=== PATIENT | female | born 1940 | race Caucasian/White ===

== ENCOUNTER 2019-02-08 22:49 | Inpatient (IN) | payer OTHER ==
[2019-02-09] MEDS ORDERED: ACETAMINOPHEN 325 MG TAB PO
[2019-02-09] MEDS ORDERED: hydrALAzine 20 MG INJ IV
[2019-02-09] MEDS: SOD CHLORIDE 0.9% 1,000 ML IV ×3 (00:48→16:03)
[2019-02-09] MEDS: ONDANSETRON 4 MG INJ IV (00:48)
[2019-02-09] MEDS: CEFTRIAXONE 1 GM/50 ML (PMX) 50 ML IVPB ×2 (00:48→23:07)
[2019-02-09] MEDS: morphine 2 MG INJ IV (00:49)
[2019-02-09] MEDS: KETOROLAC 15 MG INJ IV (00:50)
[2019-02-09] MEDS ORDERED: GLUCOSE GEL 15 GRAM TUBE PO ×2 (01:00)
[2019-02-09] MEDS ORDERED: GLUCOSE GEL 15 GRAM TUBE BUCCAL (01:00)
[2019-02-09] MEDS ORDERED: DEXTROSE 50% 50 ML SYRINGE IV ×2 (01:00)
[2019-02-09] MEDS ORDERED: GLUCAGON 1 MG INJ IM (01:00)
[2019-02-09] MEDS: ACCU-CHEK XX (02:00)
[2019-02-09 05:22] LABS: ADD MAN DIFF? NO
[2019-02-09 05:40] LABS: WHITE BLOOD COUNT 9.4 10^3/ul (4.8-10.8)
[2019-02-09 05:40] LABS: BASOPHILS % 0.2 % (0.0-2.0); EOSINOPHILS % 0.3 % (0.0-7.0); HEMATOCRIT 32.7 % (37.0-47.0); HEMOGLOBIN 10.7 g/dl (12.0-16.0); LYMPHOCYTES # 1.8 10^3/ul (0.8-2.9); LYMPHOCYTES % 18.9 % (15.0-51.0); MEAN CORPUSCULAR HEMOGLOBIN 30.2 pg (29.0-33.0); MEAN CORPUSCULAR HGB CONC 32.7 g/dl (32.0-37.0); MEAN CORPUSCULAR VOLUME 92.4 fl (82.0-101.0); MEAN PLATELET VOLUME 11.2 fl (7.4-10.4); MONOCYTE # 0.8 10^3/ul (0.3-0.9); MONOCYTES % 8.2 % (0.0-11.0); NEUTROPHIL # 6.8 10^3/ul (1.6-7.5); NEUTROPHILS % 72.1 % (39.0-77.0); PLATELET COUNT 233 10^3/UL (140-415); RED BLOOD COUNT 3.54 10^6/ul (4.20-5.40); RED CELL DISTRIBUTION WIDTH 13.1 % (11.5-14.5)
[2019-02-09 05:54] LABS: HEMOGLOBIN A1C 5.8 % (0-5.9)
[2019-02-09 06:22] LABS: ALANINE AMINOTRANSFERASE 21 IU/L (13-69); ALBUMIN 3.3 g/dl (3.3-4.9); ALKALINE PHOSPHATASE 50 IU/L (42-121); ANION GAP 6 (5-13); ASPARTATE AMINO TRANSFERASE 22 IU/L (15-46); BLOOD UREA NITROGEN 27 mg/dl (7-20); CALCIUM 9.3 mg/dl (8.4-10.2); CARBON DIOXIDE 27 mmol/L (21-31); CHLORIDE 108 mmol/L (97-110); GLUCOSE 126 mg/dl (70-220); POTASSIUM 3.6 mmol/L (3.5-5.1); SODIUM 141 mmol/L (135-144); TOTAL PROTEIN 6.3 g/dl (6.1-8.1)
[2019-02-09] MEDS: PANTOPRAZOLE 40 MG INJ IV (06:33)
[2019-02-09] MEDS: INSULIN ASPART [NOVOLOG] 3 ML PEN SC ×4 (08:00→21:00)
[2019-02-09] MEDS: ASPIRIN (EC) 81 MG TAB PO ×2 (08:22→20:26)
[2019-02-09] MEDS: METOPROLOL 25 MG TAB PO ×3 (08:22→21:08)
[2019-02-09 16:02] LABS: INR 0.98; PROTIME 13.1 Sec (11.9-14.9)
[2019-02-09] MEDS: TAMSULOSIN (SR) 0.4 MG CAP PO (21:02)
[2019-02-10] MEDS: ACCU-CHEK XX (02:00)
[2019-02-10] MEDS: SOD CHLORIDE 0.9% 1,000 ML IV ×3 (04:03→18:54)
[2019-02-10] MEDS: PANTOPRAZOLE 40 MG INJ IV (05:32)
[2019-02-10 06:04] LABS: INR 0.99; PROTIME 13.2 Sec (11.9-14.9)
[2019-02-10 06:05] LABS: PARTIAL THROMBOPLASTIN TIME 27.4 Sec (23.0-35.0)
[2019-02-10] MEDS: INSULIN ASPART [NOVOLOG] 3 ML PEN SC ×4 (08:00→22:10)
[2019-02-10] MEDS: METOPROLOL 25 MG TAB PO ×2 (08:22→21:00)
[2019-02-10] MEDS: morphine 2 MG INJ IV ×2 (09:01→10:56)
[2019-02-10 11:21] LABS: ANION GAP 8 (5-13); BLOOD UREA NITROGEN 22 mg/dl (7-20); CALCIUM 9.5 mg/dl (8.4-10.2); CARBON DIOXIDE 26 mmol/L (21-31); CHLORIDE 108 mmol/L (97-110); CREATININE 1.16 mg/dl (0.44-1.00); GLUCOSE 123 mg/dl (70-220); POTASSIUM 3.6 mmol/L (3.5-5.1); SODIUM 142 mmol/L (135-144)
[2019-02-10] MEDS ORDERED: ROCURONIUM 50 MG INJ (18:15)
[2019-02-10] MEDS ORDERED: FENTAnyl 50 MCG/ML VIAL (18:15)
[2019-02-10] MEDS ORDERED: CEFAZOLIN 1 GM INJ (18:15)
[2019-02-10] MEDS ORDERED: MIDAZOLAM 1 MG/ML 2 ML INJ (18:15)
[2019-02-10] MEDS ORDERED: PROPOFOL 20 ML (18:15)
[2019-02-10] MEDS ORDERED: IOHEXOL 300MG/ML 30 ML BTL (19:15)
[2019-02-10] MEDS ORDERED: METOPROLOL 5 MG INJ (19:24)
[2019-02-10] MEDS ORDERED: EPHEDrine SULFATE 50 MG/5 ML SYG IV (19:30)
[2019-02-10] MEDS ORDERED: FENTAnyl 50 MCG/ML VIAL IV ×3 (19:30)
[2019-02-10] MEDS ORDERED: LABETALOL HCL 20MG INJ IV (19:30)
[2019-02-10] MEDS ORDERED: hydrALAzine 20 MG INJ IV (19:30)
[2019-02-10] MEDS ORDERED: DIPHENHYDRAMINE 50 MG INJ IV (19:30)
[2019-02-10] MEDS ORDERED: ONDANSETRON 4 MG INJ IV (19:30)
[2019-02-10] MEDS ORDERED: MEPERIDINE 25 MG INJ IV (19:30)
[2019-02-10] MEDS ORDERED: HYDROmorphONE 1 MG/5 ML IV SYRINGE IV ×3 (19:30)
[2019-02-10] MEDS ORDERED: OXYCODONE/ACETAMINOPHEN (5/325) TAB PO (19:30)
[2019-02-10] MEDS ORDERED: PHENYLephrine (100 MCG/ML) 10ML SYG (19:54)
[2019-02-10] MEDS ORDERED: ONDANSETRON 4 MG INJ (19:54)
[2019-02-10] MEDS ORDERED: DEXAMETHASONE 4 MG/ML 5 ML INJ (19:54)
[2019-02-10] MEDS: ASPIRIN (EC) 81 MG TAB PO (21:00)
[2019-02-10] MEDS: TAMSULOSIN (SR) 0.4 MG CAP PO (21:00)
[2019-02-10] MEDS ORDERED: SUGAMMADEX SODIUM 200 MG/2 ML VIAL IV (21:55)
[2019-02-11] MEDS: CEFTRIAXONE 1 GM/50 ML (PMX) 50 ML IVPB (00:08)
[2019-02-11] MEDS: ACCU-CHEK XX (01:03)
[2019-02-11] MEDS: PANTOPRAZOLE 40 MG INJ IV (05:33)
[2019-02-11 05:54] LABS: ADD MAN DIFF? NO
[2019-02-11 05:58] LABS: HEMATOCRIT 32.2 % (37.0-47.0); HEMOGLOBIN 10.6 g/dl (12.0-16.0); LYMPHOCYTES # 0.6 10^3/ul (0.8-2.9); LYMPHOCYTES % 9.9 % (15.0-51.0); MEAN CORPUSCULAR HEMOGLOBIN 30.5 pg (29.0-33.0); MEAN CORPUSCULAR HGB CONC 32.9 g/dl (32.0-37.0); MEAN CORPUSCULAR VOLUME 92.5 fl (82.0-101.0); MONOCYTE # 0.1 10^3/ul (0.3-0.9); MONOCYTES % 1.1 % (0.0-11.0); NEUTROPHIL # 5.5 10^3/ul (1.6-7.5); NEUTROPHILS % 88.8 % (39.0-77.0); PLATELET COUNT 230 10^3/UL (140-415); RED BLOOD COUNT 3.48 10^6/ul (4.20-5.40); RED CELL DISTRIBUTION WIDTH 12.7 % (11.5-14.5)
[2019-02-11 05:58] LABS: WHITE BLOOD COUNT 6.2 10^3/ul (4.8-10.8)
[2019-02-11 06:31] LABS: MAGNESIUM 1.9 mg/dl (1.7-2.5)
[2019-02-11 06:31] LABS: PHOSPHORUS 4.3 mg/dl (2.5-4.9)
[2019-02-11 06:39] LABS: ANION GAP 9 (5-13); BLOOD UREA NITROGEN 22 mg/dl (7-20); CALCIUM 9.1 mg/dl (8.4-10.2); CARBON DIOXIDE 24 mmol/L (21-31); CHLORIDE 113 mmol/L (97-110); CREATININE 0.82 mg/dl (0.44-1.00); GLUCOSE 152 mg/dl (70-220); POTASSIUM 3.7 mmol/L (3.5-5.1); SODIUM 146 mmol/L (135-144)
[2019-02-11] MEDS: METOPROLOL 25 MG TAB PO (08:07)
[2019-02-11] MEDS: ASPIRIN (EC) 81 MG TAB PO (08:07)
[2019-02-11] MEDS: INSULIN ASPART [NOVOLOG] 3 ML PEN SC ×3 (08:08→17:43)
[2019-02-11] MEDS: SOD CHLORIDE 0.9% 1,000 ML IV (10:39)
[2019-02-11] MEDS: NA PHOSPHATE/BIPHOS 133 ML ENEMA PR (16:56)
[2019-02-12] MEDS ORDERED: PANTOPRAZOLE (EC) 40 MG TAB PO (06:00)
[2019-02-12] MEDS ORDERED: SENNA TAB PO (09:00)
[2019-02-12] MEDS ORDERED: ENOXAPARIN 40 MG/0.4 ML SYG SC (09:00)
== END 2019-02-11 20:08 | disposition home or self-care (01) | DRG 660 ==
LOC: 2NE 22:49
PROC: 0TC08ZZ Extirpation of Matter from Right Kidney, Via Natural or Artificial Opening Endoscopic (ICD-10-PCS; principal; 2019-02-10 18:58)
PROC: 0TC68ZZ Extirpation of Matter from Right Ureter, Via Natural or Artificial Opening Endoscopic (ICD-10-PCS; 2019-02-10 18:58)
PROC: 0T768DZ Dilation of Right Ureter with Intraluminal Device, Via Natural or Artificial Opening Endoscopic (ICD-10-PCS; 2019-02-10 18:58)
PROC: 0T908ZX Drainage of Right Kidney, Via Natural or Artificial Opening Endoscopic, Diagnostic (ICD-10-PCS; 2019-02-10 18:58)
DX: N13.6 Pyonephrosis (principal); E87.0 Hyperosmolality and hypernatremia; N17.9 Acute kidney failure, unspecified; D64.9 Anemia, unspecified; E11.9 Type 2 diabetes mellitus without complications; E78.5 Hyperlipidemia, unspecified; E04.1 Nontoxic single thyroid nodule; I10 Essential (primary) hypertension; M41.9 Scoliosis, unspecified; Z87.442 Personal history of urinary calculi; Z90.710 Acquired absence of both cervix and uterus; Z79.82 Long term (current) use of aspirin; Z79.84 Long term (current) use of oral hypoglycemic drugs
CPT/HCPCS: 71045; 74018; 74430; 80048; 80053; 82962; 83036; 83735; 84100; 85025; 85610; 85730; 87070; 87086; 88300; 93005